=== PATIENT | male | born 1955 | race Caucasian/White ===

== ENCOUNTER → 2020-08-03 | Outpatient (CLI) | payer BC ==
[~2020-08-03] MED LIST: COREG 3.123.125 MG/T PO; COZAAR100 MG PO; HCTZ 25MG TAB25 MG PO; K-TAB20 PO
== END ==
LOC: COL.LAB 08:00 → EDSTATUS 08-05 07:30 → COL.CAR 08-05 07:30
DX: Z20.828 Contact with and (suspected) exposure to other viral communicable diseases (principal)

== ENCOUNTER → 2020-08-11 | Outpatient (CLI) | payer BC | LOC: COL.LAB 10:21 | DX: Z01.810 Encounter for preprocedural cardiovascular examination (principal); Z20.828 Contact with and (suspected) exposure to other viral communicable diseases ==

== ENCOUNTER → 2020-08-11 | Outpatient (CLI) | payer BC | LOC: ZCOL.LAB 11:08 | DX: Z01.810 Encounter for preprocedural cardiovascular examination (principal) ==

== ENCOUNTER 2020-09-03 08:36 | Day surgery (SDC) | payer BC ==
[2020-09-03] VITALS (11 sets, daily range): BP systolic 120–157; BP diastolic 75–101; PULSE 58–82; TEMP 98.7
[~2020-09-03] VITALS: Ht 185.5 cm; Wt 77.8 kg
[2020-09-03] MEDS ORDERED: COZAAR100 MG PO (08:50)
[2020-09-03] MEDS ORDERED: HCTZ 25MG TAB25 MG PO (08:51)
[2020-09-03] MEDS ORDERED: COREG 3.123.125 MG/T PO (08:54)
[2020-09-03] MEDS ORDERED: K-TAB20 PO (08:55)
[2020-09-03 09:24] LABS: MEAN CELL VOLUME 94 fl (80.0-100.0); MEAN CORPUSCULAR HEMOGLOBIN 32 pg (27.0-31.0); MEAN CORPUSCULAR HGB CONC 35 g/dl (33.0-37.0); MEAN PLATELET VOLUME 10.2 fl (7.4-10.4); PLATELET COUNT 265 K/mm3 (130-400); RED BLOOD COUNT 5.57 M/mm3 (4.20-5.60); REDCELL DISTRIBUTION WIDTH-CV 14.8 % (11.5-14.5)
[2020-09-03 09:31] LABS: CALCIUM 9.5 mg/dL (8.4-10.2); CREATININE, serum 1.03 (0.66-1.25); POTASSIUM 4.7 mmol/L (3.4-5.0)
[2020-09-03 09:34] LABS: HEMATOCRIT 52.1 % (42.0-52.0)
[2020-09-03 09:38] LABS: PROTHROMBIN TIME 11.6 SECONDS (9.7-12.8)
[2020-09-03 09:41] LABS: PARTIAL THROMBOPLASTIN TIME 34.6 SECONDS (26.0-37.0)
--- NOTE | 2020-09-03 10:10 | NUR ---
SEE MERGE DOCUMENTATION FOR MEDICATION ADMINISTRATION TIMES AND INTRA/POST PROCEDURE SEDATION ASSESSMENTS. RIGHT HAND BARBEAU TEST POSITIVE.
--- NOTE | 2020-09-03 10:53 | NUR ---
Report from Arjun DARNELL. Transferred from [employer] by bed. Alert and oriented, denies pain and needs at this time. Right Tband with 16 cc air, CD&I, good pulses and cap refill < 3 secs noted. VSS. Will monitor
--- NOTE | 2020-09-03 14:30 | NUR ---
Right Tabnd 16 cc air released and pressure dressing applied. INT discontinued intact. Discharge instructions given.
--- NOTE | 2020-09-03 14:45 | NUR ---
Transferred to private car by jenny
== END 2020-09-03 14:50 | disposition home or self-care (01) ==
LOC: COL.CAR 08:36
PROVIDERS: Internal Medicine Cardiovascular Disease
DX: I25.10 Atherosclerotic heart disease of native coronary artery without angina pectoris (principal); R55 Syncope and collapse; R94.39 Abnormal result of other cardiovascular function study
CPT/HCPCS: J1644; J2250; J3010; Q9967